=== PATIENT | female | born 1995 | race Caucasian/White ===

== ENCOUNTER 2019-07-07 19:55 | Emergency (ER) | payer BC ==
[~2019-07-07] VITALS: Ht 172.7 cm; Wt 77.1 kg
[~2019-07-07 19:55] MED LIST: AMOXICILLIN500 M1 PO; PREDNISONE 20 M20 M1 PO; PROMETHAZINE-D120 ML PO
[2019-07-07] MEDS ORDERED: BIRTH CONTROL (20:05)
[2019-07-07 20:25] LABS: URINE BILIRUBIN NEGATIVE (Negative); URINE BLOOD NEGATIVE (Negative); URINE CLARITY CLEAR; URINE COLOR YELLOW; URINE GLUCOSE-RANDOM NEGATIVE (Negative); URINE KETONES NEGATIVE (Negative); URINE LEUKOCYTES-REFLEX NEGATIVE (Negative); URINE NITRITE-REFLEX NEGATIVE (Negative); URINE PROTEIN NEGATIVE (Negative); URINE SPECIFIC GRAVITY 1.015 (1.005-1.030); URINE UROBILINOGEN 0.2 E.U./dl (0.2-1.0)
[2019-07-07 20:37] LABS: ABSOLUTE BASOPHILS 0.1 thou/uL (0.0-0.2); ABSOLUTE EOSINOPHILS 0.2 thou/uL (0.0-0.7); ABSOLUTE LYMPHOCYTES 1.3 thou/uL (0.8-5.3); ABSOLUTE MONOCYTES 0.8 thou/uL (0.0-1.2); ABSOLUTE NEUTROPHILS 9.1 thou/uL (1.6-8.1); BASOPHILS 0.6 %; EOSINOPHILS 1.6 %; HEMATOCRIT 38.6 % (37.0-47.0); HEMOGLOBIN 13.5 gm/dL (12.0-15.0); LYMPHOCYTES 11.6 %; MCH 29.1 pg (26.0-34.0); MCV 83.4 fL (80.0-100.0); MONOCYTES 6.9 %; NUCLEATED RBCS 0 /100WBC; PLATELET COUNT* 293 thou/uL (150-400); POLYS 79.3 %; RBC 4.63 mil/uL (4.20-5.00); RDW-CV 12.1 % (10.5-14.5); WBC 11.4 thou/uL (4.0-11.0)
[2019-07-07 20:45] LABS: ANION GAP 8 mmol/L (7-16); BUN 11 mg/dL (7-18); CALCIUM 8.6 mg/dL (8.5-10.1); CHLORIDE 103 mmol/L (98-107); CO2 29 mmol/L (21-32); GLUCOSE 92 mg/dL (70-99); POTASSIUM 3.9 mmol/L (3.5-5.1); SODIUM 140 mmol/L (136-145)
[2019-07-07 20:56] LABS: ALBUMIN 4.1 g/dL (3.4-5.0); ALKALINE PHOSPHATASE 65 U/L (46-116); LIPASE 98 U/L (73-393); NT-PRO BRAIN NAT PEPTIDE 39 pg/mL (<300); SGOT 15 U/L (15-37); SGPT 38 U/L (30-65); TOTAL BILIRUBIN 0.8 mg/dL (<0.1-1.0); TOTAL PROTEIN 7.4 g/dL (6.4-8.2); TROPONIN-I LEVEL <0.06 ng/mL (<0.06)
[2019-07-07] MEDS ORDERED: NABUMETONE 750750 M1 PO (21:52)
[2019-07-07] MEDS ORDERED: ZANAFLEX4 MG PO (21:52)
[2019-07-07 22:04] VITALS: BP 105/48
--- NOTE | 2019-07-09 09:31 | EKG ---
[place] [address] ELECTROCARDIOGRAM REPORT Name: MING DINH Room: [facility]#: [id number] Admission: 07/07/19 Attend Phys: Discharge: 07/07/19 Date of : [birth year] Report #: [id number] THIS REPORT FOR: //name// [facility] ED Test Date: 2019-07-07 Test Time: 20:26:14 Pat Name: MING JOHNSTONJOIE Department: Room: Gender: [employer]: RICHI : 1995 Requested By: Melody Griffin Order Number: [id number] MD: Sarkis Cotto Measurements Intervals [place] Rate: 80 P: 22 MO: 135 QRS: 56 QRSD: 88 T: 63 QT: 367 QTc: 424 Interpretive Statements Sinus rhythm RSR' in V1 or V2, right VCD or RVH No previous ECG available for comparison Electronically Signed On 07-09-2019 9:31:37 CDT by Sarkis Cotto [email or web address] <ELECTRONICALLY SIGNED> By: Sarkis Cotto MD, [facility] 07/09/19930 2026 25 Sarkis Cotto MD, FAC /EPI
== END 2019-07-07 22:05 | disposition home or self-care (01) ==
LOC: M.ERS 19:55
PROVIDERS: Nurse Practitioner Family
DX: M54.6 Pain in thoracic spine (principal); Z90.49 Acquired absence of other specified parts of digestive tract